=== PATIENT | male | born 1960 | race Caucasian/White ===

== ENCOUNTER 2020-11-02 17:26 | Emergency (ER) | payer OTHER ==
[~2020-11-02] VITALS: Ht 167.6 cm; Wt 83.9 kg
[2020-11-02 17:45] VITALS: BP 131/90
--- NOTE | 2020-11-02 17:45 | NUR ---
Note [email or web address] in EDM - 11/02/20 at 1828 by [email or web address] PATIENT BIB [employer]. PATIENT EXAMINED BY DR. NICOLE. PATIENT MEDICALLY CLEARED AND RELEASED IN CUSTODY IN STABLE CONDITION. ORIGINAL PRE-BOOK FORM GIVEN TO OFFICER ANNE MARIE.
--- NOTE | 2020-11-02 17:59 | NUR ---
PATIENT BIB [facility] [employer] [facility]. PATIENT EXAMINED BY DR. NICOLE. PATIENT MEDICALLY CLEARED AND RELEASED IN CUSTODY IN STABLE CONDITION. ORIGINAL PRE-BOOK FORM GIVEN TO OFFICER ANNE MARIE.
== END 2020-11-02 17:59 ==
LOC: MED 17:26
DX: F31.9 Bipolar disorder, unspecified (principal); Z02.89 Encounter for other administrative examinations
CPT/HCPCS: 99283